=== PATIENT | male | born 1960 | race Caucasian/White ===

== ENCOUNTER 2023-02-09 19:20 | Inpatient (IN) | payer OTHER, MEDICARE ==
[~2023-02-09 19:20] MED LIST: Iopamidol-370 76% 500 ML 1 ML ONE
[2023-02-09 19:33] LABS: #Lymphocytes 2.4 thou/uL (1.20-3.40); #Monocytes 1.5 thou/uL (0.11-0.59); %Eosinophils 0.1 % (0.0-10.0); %Lymphocytes 12.1 % (21.0-51.0); %Monocytes 7.3 % (0.0-10.0); %Neutrophils 80.4 % (42.0-75.0); Hemoglobin 13.1 g/dL (14.0-18.0); Mean Corpuscular HGB CONC 32.4 g/dL (32.0-36.0); Mean Corpuscular Hemoglobin 31.5 pg (27.0-31.0); Mean Corpuscular Volume 97.2 fl (78.0-98.0); Mean Platelet Volume 7.2 fL (7.4-10.4); Platelet Count 283 10x3/uL (130-400); Red Blood Cell (RBC) Count 4.17 mill/uL (4.70-6.10); White Blood Cell (WBC) Count 19.9 10x3/uL (4.8-10.8)
[2023-02-09] MEDS ORDERED: FENTANYL 50 MCG/ML 1 ML VIAL ONE (19:37)
[2023-02-09 19:42] LABS: INR-International Normal Ratio 1.1; Prothrombin Time 14.5 sec (12.0-14.7)
[2023-02-09] MEDS ORDERED: Ondansetron PF 4 MG/2 ML Vial ONE (19:53)
[2023-02-09 19:58] LABS: ALT (SGPT) 29 U/L (8-55); AST (SGOT) 54 U/L (5-34); Albumin 4.1 g/dL (3.5-5.0); Alcohol 18 mg/dL (Less than 10); Alkaline Phosphatase 47 U/L (40-110); Anion Gap 18 mmol/L (10-20); BUN (Urea Nitrogen) 16 mg/dL (8.4-25.7); Bilirubin, Total 0.4 mg/dL (0.2-1.2); Calc. Creatinine Clearance 0 mL/min (70-130); Calcium 8.4 mg/dL (7.8-10.44); Carbon Dioxide 18 mmol/L (22-29); Chloride 106 mmol/L (98-107); Estimated GFR 73; Globulin 2.7 g/dL (2.4-3.5); Glucose 124 mg/dL (70-105); Lipase 26 U/L (8-78); Potassium 3.7 mmol/L (3.5-5.1); Protein, Total 6.8 g/dL (6.0-8.3); Sodium 138 mmol/L (136-145)
[2023-02-09] MEDS ORDERED: Ketamine 50 MG/ML (10ML VIAL) ONE (20:39)
[2023-02-09] MEDS ORDERED: Lidocaine 1% w/Epinephrine 1:100K 20 ML VIAL ONE ×2 (20:41→21:17)
[2023-02-09] MEDS ORDERED: Dextrose 5% in Water 1,000 ML IV PRN (20:53)
[2023-02-09] MEDS ORDERED: Promethazine HCl 25 MG/ML VIAL IM PRN (20:53)
[2023-02-09] MEDS ORDERED: Ondansetron PF 4 MG/2 ML Vial IVP PRN (20:53)
[2023-02-09] MEDS ORDERED: Dextrose 50% Abboject 50 ML SYRINGE SLOW IVP PRN (20:53)
[2023-02-09] MEDS ORDERED: Ipratropium/Albuterol 3 ML NEB NEB PRN (20:53)
[2023-02-09] MEDS ORDERED: Ondansetron ODT 4 MG TAB PO PRN (20:53)
[2023-02-09] MEDS ORDERED: TETANUS, DIPHTHERIA TOX,ADULT (TDVAX) 0.5 ML VIAL IM ONE (20:53)
[2023-02-09] MEDS ORDERED: hydrALAZINE 20 MG/ML VIAL SLOW IVP PRN (20:53)
[2023-02-09] MEDS ORDERED: Morphine 4 MG/ML VIAL SLOW IVP PRN (21:00)
[2023-02-09] MEDS ORDERED: Ipratropium/Albuterol 3 ML NEB NEB SCH (21:00)
[2023-02-09] MEDS ORDERED: Morphine 2 MG/ML VIAL SLOW IVP PRN (21:00)
[2023-02-09] MEDS ORDERED: Sodium Chloride 0.9% 1,000 ML IV SCH (21:00)
[2023-02-09] MEDS ORDERED: Lidocaine 1% PF 5 ML VIAL ONE (21:12)
[2023-02-09 21:37] LABS: Magnesium 2.1 mg/dL (1.6-2.6)
[2023-02-10] MEDS: Famotidine 20 MG TAB PO SCH ×3 (00:54→21:27)
[2023-02-10] MEDS: Gabapentin 300 MG CAP PO SCH ×3 (00:55→16:04)
[2023-02-10] MEDS: Senokot S 8.6-50 MG TAB PO SCH ×3 (00:55→21:27)
[2023-02-10] MEDS: Acetaminophen 500 MG TAB PO SCH ×5 (01:00→23:35)
[2023-02-10] MEDS: traMADol HCl 50 MG TAB PO SCH ×5 (01:01→23:34)
[2023-02-10] MEDS: Ketorolac Tromethamine 30 MG/ML VIAL IVP SCH ×5 (01:02→23:33)
[2023-02-10 02:33] VITALS: BMI 23.3
[2023-02-10 07:23] LABS: #Lymphocytes 1.1 thou/uL (1.20-3.40); #Monocytes 0.7 thou/uL (0.11-0.59); #Neutrophils 7.3 thou/uL (1.40-6.50); %Basophils 0.2 % (0.0-1.0); %Eosinophils 0.1 % (0.0-10.0); %Lymphocytes 12.1 % (21.0-51.0); %Monocytes 7.5 % (0.0-10.0); %Neutrophils 80.2 % (42.0-75.0); Hemoglobin 11.1 g/dL (14.0-18.0); Mean Corpuscular HGB CONC 32.5 g/dL (32.0-36.0); Mean Corpuscular Hemoglobin 31.8 pg (27.0-31.0); Mean Corpuscular Volume 97.8 fl (78.0-98.0); Mean Platelet Volume 7.4 fL (7.4-10.4); Platelet Count 230 10x3/uL (130-400); Red Blood Cell (RBC) Count 3.49 mill/uL (4.70-6.10); White Blood Cell (WBC) Count 9.1 10x3/uL (4.8-10.8)
[2023-02-10 07:38] LABS: Anion Gap 17 mmol/L (10-20); BUN (Urea Nitrogen) 23 mg/dL (8.4-25.7); Calc. Creatinine Clearance 89 mL/min (70-130); Calcium 7.9 mg/dL (7.8-10.44); Carbon Dioxide 21 mmol/L (22-29); Chloride 106 mmol/L (98-107); Estimated GFR 84; Glucose 121 mg/dL (70-105); Magnesium 2.1 mg/dL (1.6-2.6); Potassium 4.8 mmol/L (3.5-5.1); Sodium 139 mmol/L (136-145)
[2023-02-10 07:39] LABS: Phosphorus 4.9 mg/dL (2.3-4.7)
[2023-02-10] MEDS: Polyethylene Glycol 3350 17 GM Packet PO SCH (08:19)
[2023-02-10] MEDS: Ipratropium/Albuterol 3 ML NEB NEB SCH ×2 (11:31→19:10)
[2023-02-10] MEDS: Cyclobenzaprine 10 MG TAB PO PRN (21:32)
[2023-02-11] MEDS: Gabapentin 300 MG CAP PO SCH ×4 (02:55→21:00)
[2023-02-11] MEDS: Acetaminophen 500 MG TAB PO SCH ×3 (05:36→17:31)
[2023-02-11] MEDS: traMADol HCl 50 MG TAB PO SCH ×3 (05:37→17:30)
[2023-02-11] MEDS: Ketorolac Tromethamine 30 MG/ML VIAL IVP SCH ×3 (05:37→17:30)
[2023-02-11] MEDS: Ipratropium/Albuterol 3 ML NEB NEB SCH ×3 (07:04→19:29)
[2023-02-11] MEDS: Polyethylene Glycol 3350 17 GM Packet PO SCH (09:41)
[2023-02-11] MEDS: Senokot S 8.6-50 MG TAB PO SCH ×2 (09:41→20:59)
[2023-02-11] MEDS: Famotidine 20 MG TAB PO SCH ×2 (09:41→20:59)
[2023-02-11] MEDS ORDERED: Lidocaine 4% Patch TD PRN (17:47)
[2023-02-11] MEDS: Cyclobenzaprine 10 MG TAB PO PRN (20:59)
[2023-02-12] MEDS: traMADol HCl 50 MG TAB PO SCH ×4 (01:54→16:57)
[2023-02-12] MEDS: Acetaminophen 500 MG TAB PO SCH ×4 (01:54→16:57)
[2023-02-12] MEDS: Ketorolac Tromethamine 30 MG/ML VIAL IVP SCH ×2 (01:55→05:34)
[2023-02-12] MEDS ORDERED: Ibuprofen 200 MG TAB PO PRN (07:38)
[2023-02-12] MEDS: Ipratropium/Albuterol 3 ML NEB NEB SCH ×2 (07:41→14:37)
[2023-02-12] MEDS: Gabapentin 300 MG CAP PO SCH ×2 (08:36→15:29)
[2023-02-12] MEDS: Famotidine 20 MG TAB PO SCH (08:36)
[2023-02-12] MEDS: Senokot S 8.6-50 MG TAB PO SCH (08:36)
[2023-02-12] MEDS: Polyethylene Glycol 3350 17 GM Packet PO SCH (08:37)
[2023-02-12 16:58] VITALS: BP 126/73; TEMP 98.7
[2023-02-12] MEDS ORDERED: Transdermal Patch Removal TOP SCH (21:00)
== END 2023-02-12 18:06 | disposition home or self-care (01) | DRG 200 ==
LOC: EDBD → ERS 19:20 → EDUNIT# 20:58 → SURG B 20:58
PROVIDERS: ADMIT Surgery; ATTEND Surgery
PROC: 0W9B30Z Drainage of Left Pleural Cavity with Drainage Device, Percutaneous Approach (ICD-10-PCS; principal; 2023-02-09)
PROC: 0HQ0XZZ Repair Scalp Skin, External Approach (ICD-10-PCS; 2023-02-09)
PROC: 0HQGXZZ Repair Left Hand Skin, External Approach (ICD-10-PCS; 2023-02-09)
PROC: 0HQ1XZZ Repair Face Skin, External Approach (ICD-10-PCS; 2023-02-09)
DX: S27.2XXA Traumatic hemopneumothorax, initial encounter (principal); S02.40DA Maxillary fracture, left side, initial encounter for closed fracture; S12.600A Unspecified displaced fracture of seventh cervical vertebra, initial encounter for closed fracture; S22.019A Unspecified fracture of first thoracic vertebra, initial encounter for closed fracture; S22.42XA Multiple fractures of ribs, left side, initial encounter for closed fracture; S27.321A Contusion of lung, unilateral, initial encounter; Z20.822 Contact with and (suspected) exposure to COVID-19; S01.01XA Laceration without foreign body of scalp, initial encounter; S61.412A Laceration without foreign body of left hand, initial encounter; S62.347A Nondisplaced fracture of base of fifth metacarpal bone, left hand, initial encounter for closed fracture; S62.345A Nondisplaced fracture of base of fourth metacarpal bone, left hand, initial encounter for closed fracture; S62.637A Displaced fracture of distal phalanx of left little finger, initial encounter for closed fracture; S62.615A Displaced fracture of proximal phalanx of left ring finger, initial encounter for closed fracture; S01.81XA Laceration without foreign body of other part of head, initial encounter; V86.65XA Passenger of 3- or 4- wheeled all-terrain vehicle (ATV) injured in nontraffic accident, initial encounter; Y92.828 Other wilderness area as the place of occurrence of the external cause; Z95.2 Presence of prosthetic heart valve; Z88.1 Allergy status to other antibiotic agents
CPT/HCPCS: 36415; 70450; 71045; 71260; 72125; 72170; 74177; 80048; 80053; 80307; 83690; 83735; 84100; 85025; 85610; 85730; 93005; 93010; 94640; G0390; J1885; J2270; J2405; J2550; J3010; J7030; J7050; J7620; Q9967; U0003; U0005